=== PATIENT | male | born 1965 | race Caucasian/White ===

== ENCOUNTER 2018-01-22 10:24 | Emergency (ER) | payer OTHER ==
--- NOTE | 2018-01-22 12:48 | ED Physician Documentation ---
History of Present Illness - Stated complaint Stated Complaint: BI-LAT LEG PX - Chief complaint Chief Complaint: Ext Problem - History obtained from History obtained from: Patient - History of Present Illness Timing: Chronic Pain level max: 6 Pain level now: 3 Improved by: rest Worsened by: walking - Additonal information Additional information: Patient is a 52-year-old gentleman who presents to the emergency department bilateral lower extremity swelling. History of varicose veins. Has not been wearing his compression stockings. Concerned that he may have a DVT. Just finished a 31 [address] bus ride from [place] to here. No chest pain, no dyspnea , no redness. states feels better with naprosyn. Review of Systems Constitutional: denies: Fever, Chills Nose: denies: Rhinorrhea / runny nose, Congestion Throat: denies: Sore throat Cardiac: denies: Chest pain / pressure Respiratory: denies: Cough GI: denies: Nausea, Vomiting, Diarrhea Skin: denies: Rash Musculoskeletal: denies: Neck pain, Back pain Neurologic: denies: Headache PD PAST MEDICAL HISTORY - Past Medical History Past Medical History: Yes Cardiovascular: Other HEENT: Other Psych: Anxiety, Panic attacks Musculoskeletal: Gout Other Past Medical History: Right glass eye - Past Surgical History Past Surgical History: Yes General: Appendectomy, Colonoscopy Cardiovascular: Other HEENT: Tonsil/Adenoidectomy, Other - Present Medications Home Medications: Ambulatory Orders Medication Instructions Recorded Confirmed Atorvastatin [Lipitor] 10 mg DAILY 01/22/18 01/22/18 - Allergies Allergies/Adverse Reactions: Allergies Allergy/AdvReac Type Severity Reaction Status Date / Time codeine Allergy Unknown Verified 01/22/18 10:48 - Social History Does the pt smoke?: Yes Smoking Status: Current every day smoker Does the pt drink ETOH?: No Does the pt have substance abuse?: No - Immunizations Immunizations are current?: Yes Immunizations: TDAP current <10years PD ED PE NORMAL - Vitals Vital signs reviewed: Yes - General General: Alert and oriented X 3, No acute distress - Derm Derm: Warm and dry - Extremities Extremities: Other (1+ bilateral lower extremity edema. Mild calf tenderness bilaterally.) - Neuro Neuro: Alert and oriented X 3 - Psych Psych: Normal mood, Normal affect Results - Vitals Vitals: Vital Signs - 24 hr 08/27/18 08/27/18 10:44 14:57 Temperature 36.9 C 36.2 C L Heart Rate 82 55 L Respiratory 18 18 Rate Blood Pressure 136/91 H 112/70 O2 Saturation 99 97 Oxygen O2 Source Room air - Rads (name of study) duplex US B LE Radiology: Prelim report reviewed, EMP read contemporaneously, See rad report ( no DVT) PD MEDICAL DECISION MAKING - ED course Complexity details: reviewed results, re-evaluated patient, considered differential, d/w patient ED course: Patient with increased leg swelling and calf tenderness today after not wearing his compression stockings. No DVT on US. Will follow up with PCP for further care. Patient counseled regarding signs and symptoms for which I believe and urgent re-evaluation would be necessary. Patient with good understanding of and agreement to plan and is comfortable going home at this time This document was made in part using voice recognition software. While efforts are made to proofread this document, sound alike and grammatical errors may occur. - Sepsis Event Vital Signs: Vital Signs - 24 hr 01/22/18 01/22/18 10:44 14:57 Temperature 36.9 C 36.2 C L Heart Rate 82 55 L Respiratory 18 18 Rate Blood Pressure 136/91 H 112/70 O2 Saturation 99 97 Oxygen O2 Source Room air Departure - Departure Disposition: 01 Home, Self Care Clinical Impression: Peripheral edema Condition: Good Instructions: ED Edema Legs Bilateral Follow-Up: your,doctor in 1 week [Other] Comments: Please wear the compression stockings at home. Return if you worsen. Your ultrasounds do not show any evidence of blood clots today. Discharge Date/Time: 01/22/18 14:57
--- NOTE | 2018-01-22 14:24 | Ultrasound Report ---
Reason: pain and swelling both legs Procedure Date: 01/22/2018 Accession Number: [id number] / [id number] Procedure: US - Duplex Ext Veins Bilateral CPT Code: FULL RESULT: EXAM: BILATERAL LOWER EXTREMITY VENOUS ULTRASOUND EXAM DATE: 01/22/2018 02:08 PM. CLINICAL HISTORY: Pain and swelling in the bilateral legs. COMPARISON: None. TECHNIQUE: Real-time sonographic vascular imaging was performed by the unit secy through the lower extremities utilizing both color-flow and Doppler spectral analysis. Multiple client representative static images were saved for review. FINDINGS: Right: Common Femoral Vein (CFV): Normal. CFV-GSV Junction: Normal. Profunda Femoral Vein (PFV): Normal. Femoral Vein (FV) Prox: Normal. Femoral Vein (FV) Mid: Normal. Femoral Vein (FV) Dist: Normal. Popliteal Vein: Normal. Posterior Tibial Veins: Normal. Peroneal Veins: Normal. Left: Common Femoral Vein (CFV): Normal. CFV-GSV Junction: Normal. Profunda Femoral Vein (PFV): Normal. Femoral Vein (FV) Prox: Normal. Femoral Vein (FV) Mid: Normal. Femoral Vein (FV) Dist: Normal. Popliteal Vein: Normal. Posterior Tibial Veins: Normal. Peroneal Veins: Normal. Other: Normal size and appearing lymph node in the right common femoral vein region/groin. Small simple-appearing fluid collection in the left popliteal fossa, statistically likely a workman's cyst, measuring 2.0 x 0.6 x 1.4 cm (approximately 1 cc). IMPRESSION: 1. No evidence for lower extremity deep venous thrombosis bilaterally. 2. Small left presumed workman's cyst. [facility]
[2018-01-22 14:58] VITALS: BP 112/70
== END 2018-01-22 14:57 | disposition home or self-care (01) ==
LOC: ED 10:24
DX: R60.0 Localized edema (principal); F17.200 Nicotine dependence, unspecified, uncomplicated
CPT/HCPCS: 93970; 99283